=== PATIENT | female | born 1955 | race Caucasian/White ===

== ENCOUNTER 2022-12-28 14:27 | Emergency (ER) | payer BC, MEDICARE ==
[~2022-12-28] VITALS: Ht 174 cm; Wt 71.4 kg
[~2022-12-28 14:27] MED LIST: CETI-90 PO; EPIN0.3P8 IM; FAMO40TA73 PO; LEVO125T PO; LISI20TA28 PO; MOME17SP5 NS; PRED10TA PO; RIZA-5 PO
[2022-12-28 14:43] VITALS: TEMP 97.6
[2022-12-28 15:36] LABS: BASOPHILS % (AUTO) 0.5 % (0-1); EOSINOPHILS % (AUTO) 0.8 % (0-6); HEMATOCRIT 45.4 % (35.0-45.0); HEMOGLOBIN 14.9 g/dl (12.0-16.0); LYMPHOCYTES # (AUTO) 1.6 X10'3 (1.1-4.8); LYMPHOCYTES % (AUTO) 32.3 % (21-51); MEAN CORPUSCULAR HEMOGLOBIN 28.9 PG (27.0-31.0); MEAN CORPUSCULAR HGB CONC 32.8 g/dL (33.0-36.5); MEAN CORPUSCULAR VOLUME 88.2 FL (78-98); MEAN PLATELET VOLUME 7.3 FL (7.4-10.4); MONOCYTES # (AUTO) 0.4 X10'3 (0-0.9); MONOCYTES % (AUTO) 8.9 % (2-12); NEUTROPHILS # (AUTO) 2.8 X10'3 (1.8-7.7); NEUTROPHILS % (AUTO) 57.5 % (42-75); PLATELET COUNT 90 X10'3 (140-440); RED BLOOD COUNT 5.15 X10'6 (4.20-5.60); RED CELL DISTRIBUTION WIDTH 15.5 % (11.5-14.5); WHITE BLOOD COUNT 4.9 X10'3 (4.5-11.0)
[2022-12-28 15:53] LABS: ALANINE AMINOTRANSFERASE 20 U/L (12-78); ALBUMIN 4.3 G/DL (3.4-5.0); ALBUMIN/GLOBULIN RATIO 1.3 (1.1-1.5); ALKALINE PHOSPHATASE 52 IU/L (46-116); ANION GAP 10 (8-16); ASPARTATE AMINO TRANSFERASE 17 U/L (10-37); BILIRUBIN,TOTAL 0.6 MG/DL (0.1-1.0); BLOOD UREA NITROGEN 20 MG/DL (7-18); CALCIUM 9.2 MG/DL (8.5-10.1); CHLORIDE 105 MMOL/L (99-107); CREATININE 1.05 MG/DL (0.40-0.90); GLUCOSE 94 MG/DL (70-104); LIPASE 117 U/L (73-393); POTASSIUM 3.8 MMOL/L (3.5-5.1); SODIUM 140 MMOL/L (135-145); TOTAL CARBON DIOXIDE 25.2 MMOL/L (24-32); TOTAL PROTEIN 7.5 G/DL (6.4-8.2); eCRCL 53 ML/MIN; eGFR 52 ML/MIN
[2022-12-28 16:06] LABS: BILIRUBIN,URINE NEGATIVE (Neg); CLARITY,URINE CLEAR (Clear); COLOR,URINE YELLOW (Yellow); GLUCOSE, URINE NEGATIVE (Neg); KETONES,URINE NEGATIVE (Neg); LEUKOCYTE ESTERASE ,URINE NEGATIVE (Neg); NITRITES, URINE NEGATIVE (Neg); OCCULT BLOOD,URINE TRACE-INTACT (Neg); PROTEIN,URINE NEGATIVE (Neg); UROBILINOGEN,URINE 0.2 E.U/dL (0.2-1.0)
[2022-12-28 16:07] LABS: UA COLLECTION TYPE CLN CATCH MIDSTREAM
[2022-12-28 16:15] LABS: BACTERIA,URINE NONE SEEN /HPF (Neg); MUCUS STRANDS NONE SEEN /LPF (Neg); RBC,URINE 0-2 /HPF (0-2); SQUAMOUS EPITHELIAL CELL,UR NONE SEEN /LPF (FEW); TRANSITIONAL EPI CELLS,URINE FEW /HPF; WBC,URINE NONE SEEN /HPF (0-4)
[2022-12-28] MEDS ORDERED: normal saline 1000ML IV soln IVB ONE (17:00)
[2022-12-28] MEDS ORDERED: iohexol 300mg/ml 100ml inj. ONE (17:09)
[2022-12-28 17:18] LABS: MAGNESIUM 2.4 MG/DL (1.5-2.4)
[2022-12-28 17:23] LABS: APTT 27 SECONDS (22-32); PROTHROMBIN TIME 10.4 SECONDS (9.0-12.0)
[2022-12-28 18:52] VITALS: BP 148/86; PULSE 57; RESP 18; O2SAT 99
[2022-12-28] MEDS ORDERED: dicyclomine 10 MG capsule PO ONE (19:20)
[2022-12-28] MEDS ORDERED: metroNIDAZOLE 500mg tablet PO ONE (19:20)
[2022-12-28] MEDS ORDERED: ketorolac trometh. 30mg/ml inj. IV ONE (19:25)
[2022-12-28] MEDS ORDERED: METR-159 PO (19:28)
[2022-12-28 19:50] LABS: BILIRUBIN,URINE NEGATIVE (Neg); CLARITY,URINE CLEAR (Clear); COLOR,URINE STRAW (Yellow); GLUCOSE, URINE NEGATIVE (Neg); KETONES,URINE NEGATIVE (Neg); LEUKOCYTE ESTERASE ,URINE NEGATIVE (Neg); NITRITES, URINE NEGATIVE (Neg); OCCULT BLOOD,URINE NEGATIVE (Neg); PROTEIN,URINE NEGATIVE (Neg); UROBILINOGEN,URINE 0.2 E.U/dL (0.2-1.0)
[2022-12-28 19:58] LABS: UA COLLECTION TYPE CLN CATCH MIDSTREAM
[2022-12-28] MEDS ORDERED: ONDA4TAB12 PO (21:16)
== END 2022-12-28 21:21 | disposition home or self-care (01) ==
LOC: ER 14:28
DX: N83.201 Unspecified ovarian cyst, right side (principal); Z88.2 Allergy status to sulfonamides; Z79.899 Other long term (current) drug therapy
CPT/HCPCS: 36415; 74177; 76830; 76856; 80053; 81001; 81003; 83690; 83735; 85025; 85610; 85730; 93976; 96361; 96374; 99285; J1885; J3490; J7030; Q9967